=== PATIENT | female | born 1975 | race Hispanic/Latino ===

== ENCOUNTER 2019-02-21 10:54 | Emergency (ER) | payer BC, SELFPAY ==
[2019-02-21] VITALS (11 sets, daily range): BP systolic 106–145; BP diastolic 75–110; PULSE 59–97; RESP 8–25; TEMP 37; O2SAT 96–100; BMI 28.1
[2019-02-21] MEDS: Glucagon 1 MG/ML Syringe IV (11:39)
--- NOTE | 2019-02-21 11:42 | ED.VIS.GEN ---
History of Present Illness <Deep Tran - Last Filed: 02/21/19 14:56> Informant: Patient Onset: Today Context: Sudden Onset Timing: Continuous Quality: burning Location: throat Current Severity: Severe Maximum Severity: Severe Worsened by: swallowing Relieved by: nothing Associated Symptoms: denies Narrative: 43-year-old female who denies any significant past medical history presents to the emergency department with difficulty swallowing. Patient was eating homemade fish soup this morning and she feels like she swallowed a fishbone. She is now unable to swallow. She has not vomited. She denies drooling. She denies a history of similar symptoms. Denies a history of endoscopy. Denies history of GERD. Denies any other review of systems. Prior similar symptoms: No Recent Illness/Hospitalization: No <BoomayleenRadhames - Last Filed: 02/21/19 17:22> Chief Complaint: Foreign Body Past Medical History <Deep Tran - Last Filed: 02/21/19 14:56> Prior records reviewed: Yes Past Medical History: None Surgical History: herniorrhaphy Lives: With Family Smoking Status: Never smoker Alcohol: None <BoomayleenRadhames - Last Filed: 02/21/19 17:22> - Allergies and Home Meds Allergies/Adverse Reactions: Allergies No Known Allergies Allergy (Verified 02/21/19 10:54) Primary Care Physician: Su Laguna MD [Primary Care Provider] - Review of Systems All systems negative except as indicated ENT: Reports: Sore throat Gastrointestinal: Reports: - - Unable to swallow <Radhames Perez - Last Filed: 02/21/19 17:22> Physical Exam Vital Signs/Narrative: Vital Signs Pulse Pulse Pulse Pulse Pulse Pulse Pulse 02/21/19 14:53 86 02/21/19 14:46 84 02/21/19 14:41 87 02/21/19 14:36 91 02/21/19 14:13 79 77 75 77 85 92 02/21/19 14:02 65 02/21/19 13:27 02/21/19 12:07 61 Pulse Pulse Resp Resp Resp Resp Resp 02/21/19 14:53 25 H 02/21/19 14:46 15 02/21/19 14:41 16 02/21/19 14:36 15 02/21/19 14:13 94 97 19 H 8 L 13 16 02/21/19 14:02 14 02/21/19 13:27 02/21/19 12:07 14 Resp Resp Resp Resp BP BP BP 02/21/19 14:53 122/81 H 02/21/19 14:46 136/78 H 02/21/19 14:41 121/85 H 02/21/19 14:36 124/83 H 02/21/19 14:13 14 21 H 25 H 15 124/80 H 133/79 H 02/21/19 14:02 129/97 H 02/21/19 13:27 115/102 H 02/21/19 12:07 132/83 H BP BP BP BP BP BP Pulse Ox 02/21/19 14:53 96 02/21/19 14:46 98 02/21/19 14:41 99 02/21/19 14:36 99 02/21/19 14:13 133/79 H 142/110 H 124/84 H 106/78 123/91 H 138/90 H 02/21/19 14:02 100 02/21/19 13:27 02/21/19 12:07 98 <Deep Tran - Last Filed: 02/21/19 14:56> Vital Signs/Narrative: Vital Signs Temp Pulse Resp BP Pulse Ox 02/21/19 10:55 98.6 F 93 18 145/94 H 97 Inital Vital Signs reviewed: Yes General: Well nourished, Well developed, No Acute Distress Head: Normocephalic, Atraumatic Eyes: Perrl, EOMI ENT: Moist mucous membranes, - - Posterior oropharynx is erythematous. She has no stridor drooling or trismus. She is able to tolerate her secretions. Her voice is normal. Neck: Supple, Nontender Cardiovascular: Regular rate, Regular rhythm, No murmurs Respiratory: No distress, CTA bilaterally, Chest nontender Abdomen: Soft, Nontender, Nondistended, Normal bowel sounds, No masses Back: Nontender, Normal Inspection Extremities: Nontender, No edema Skin: Normal color, No rash Neurological: Alert, Oriented x3 <Radhames Perez - Last Filed: 02/21/19 17:22> Diagnostic/Tx/Re-eval - Medical Decision Making The patient continued to have symptoms despite using the glucagon, we spoke with Dr. Cerda who agreed to come in and provide EGD therapy, She underwent standard conscious sedation protocol cardiac monitoring pulse ox high flow oxygen, pulse ox 90% awake alert agreed to the procedure timeout performed, the patient was medicated, with Versed fentanyl incremental doses of propofol, EGD was performed scaly small cartilaginous type foreign body was found in the esophagus please see Dr. corey note for full details, patient was medicated incremental fashion to allow for the procedure, remained hemodynamically stable maintain her sat 99% and the foreign body was eventually removed without difficulty, she tolerated procedure well she woke had no complaints understood all the above understood instructions to follow-up and return for any type of pain swelling difficulties or breathing difficulties Home stable Impression final Fish foreign body scale in the esophagus Status post conscious sedation Post EGD removal of fish foreign body scale <Deep Tran - Last Filed: 02/21/19 14:56> - Medical Decision Making Patient's vital signs are stable. She is tolerating her secretions. There is no stridor trismus or drooling. She has a piece of a remnant of what she feels that is stuck in her throat it appears to be a piece of cartilage or scale or a Fragoso from the fish. She is having difficulty swallowing. We spoke with Dr. Cerda, on-call for surgery. He will take the patient to the endoscopy suite for direct visualization. IV was established and the patient was given glucagon. Patient had no improvement after glucagon. Dr. Cerda perform the endoscopy in the emergency department rather than taking her to the endoscopy suite. Conscious sedation was performed by Dr. Tran. Foreign body was removed. Patient was monitored post procedure and did well. Her airway is normal. Her vital signs are stable. She feels significantly improved. She will be discharged with her family. Patient <Radhames Perez - Last Filed: 02/21/19 17:22> ED Disposition <Deep Tran - Last Filed: 02/21/19 14:56> <Radhmaes Perez - Last Filed: 02/21/19 17:22> - Plan for ED Patient: Disposition: Home or Assisted Living Diagnosis: Foreign body in esophagus Instructions: ESOPHAGEAL FOREIGN BODY, Resolved Prescriptions: Omeprazole [Prilosec] 20 mg PO DAILY #30 cap Prescription Printed Referrals: Su Laguna MD [Primary Care Provider] -
[2019-02-21] MEDS: Ondansetron 4 MG/2 ML Vial IV (11:47)
[2019-02-21] MEDS: Morphine 4 MG/ML Syringe IV (11:47)
--- NOTE | 2019-02-21 11:55 | RAD_ITS ---
STUDY: X-RAY - SOFT TISSUE NECK REASON FOR EXAM: Female, 43 years old. Swallowed fishbone TECHNIQUE: 2 view(s) of the neck were obtained. COMPARISON: None. FINDINGS: Normal visualized nasopharynx, oropharynx, hypopharynx. Normal epiglottis. Normal visualized subglottic tracheal air column. Normal prevertebral soft tissue structures. There are degenerative changes of the cervical spine with cervical spondylosis. The soft tissue structures are unremarkable. RAD/Neck for Soft Tissue IMPRESSION: No visualized foreign body. Degenerative changes of the cervical spine. Electronically Signed: Francesca Centeno MD at 12:20 EDT Tel , Service support ,
--- NOTE | 2019-02-21 11:55 | RAD_ITS ---
STUDY: X-RAY CHEST REASON FOR EXAM: Female, 43 years old. Swallowed fishbone TECHNIQUE: Single AP portable view of the chest. COMPARISON: None. FINDINGS: The lungs are clear and expanded. There is no demonstrated pleural abnormality. Normal size heart. Normal mediastinum and sarah. Normal visualized pulmonary arteries. Normal visualized aortic arch and descending thoracic aorta. Normal visualized thoracic spine. Normal visualized ribs, clavicles, and shoulders. There is an air-fluid level in the stomach. RAD/Chest 1 View (Portable) IMPRESSION: Normal x-ray examination of the chest. No visualized foreign body. Electronically Signed: Francesca Centeno MD at 12:19 EDT Tel , Service support ,
[2019-02-21 12:29] LABS: Absolute Lymphocyte Count 1.96 X10^3/uL (0.83-4.51); Absolute Neutrophil Count 4.4 X10^3/uL (2.0-7.7); Basophil# 0.03 X10^3/uL; Basophil% 0.4 % (0-1); Eosinophil# 0.03 X10^3/uL; Eosinophils% 0.4 % (0-5); Hematocrit 42.5 % (37-47); Hemoglobin 13.5 g/dL (12.0-15.0); Lymphocyte # 1.96 X10^3/ul (4.0); Mean Corp Hgb Conc 31.8 g/dL (32-36); Mean Corpuscular Hgb 29.9 pg (27.0-32.0); Mean Platelet Vol. 10.5 fl (6.2-12.0); Monocyte# 0.82 X10^3/uL; Monocyte% 11.3 % (0-10); NRBC Flagged by Analyzer 0 % (0-5); Neutrophil # 4.39 X10^3/uL (2.7-7.7); Neutrophil % 60.5 % (47-70); Platelet Count 232 K/mm3 (150-450); RBC Distribution Width CV 13.2 % (11.6-14.6); RBC Distribution Width SD 45.8 fl (35.1-43.9); Red Blood Count 4.52 M/mm3 (4.2-5.4); White Blood Count 7.3 K/mm3 (4.4-11.0)
[2019-02-21 12:50] LABS: Anion Gap 5 (5-15); BUN 10 mg/dL (7-18); BUN/Creat Ratio 13.1 RATIO (10-20); Calcium,Total 8.4 mg/dL (8.5-10.1); Chloride 111 mmol/L (98-107); Creatinine, Serum 0.76 mg/dL (0.55-1.02); EST Glomerular Filtration Rate 87 mL/min (>60); Est Glom Filt Rate - Afr Amer 106 mL/min (>60); Estimated Creatinine Clearance 82.42 ml/min; Glucose 96 mg/dL (74-106); Potassium 3.7 mmol/L (3.5-5.1); Sodium Level 142 mmol/L (136-145)
--- NOTE | 2019-02-21 14:41 | CON.PCM_ITS ---
Reason for Consult Date of Consultation: 02/21/19 Reason for Consultation: esophageal foreign body History of Present Illness: The patient is a 43 year old F who presents after making fish bone soup. She tried the soup and then noticed a sensation of foreign body in her upper esophag us. This sensation failed to pass and she presented emergency department. The patient had a cervical x-ray and chest x-ray which demonstrated no abnormalities and no signs of foreign bodies. The patient was given glucagon prior to my presentation. When contacted, I recommended urgent upper endoscopy with planned esophageal foreign body removal. The patient takes no blood thinners has no previous history of esophageal foreign bodies or upper GI complaints. Past Medical History Allergies No Known Allergies Allergy (Verified 02/21/19 10:54) Home Medications: Ambulatory Orders Medication Instructions Recorded Omeprazole [Prilosec] 20 mg PO DAILY #30 cap 02/21/19 Surgical History: herniorrhaphy Lives: With Family Smoking Status: Never smoker Alcohol: None Review of Systems Constitutional: Denies: Chills, Fever, Weight Change HEENT: Reports: Dysphasia. Denies: Head Aches, Sinus Congestion, Sinus Drainage Cardiovascular: Denies: Chest Pain, Palpitations Respiratory: Denies: Cough, Shortness of breath at rest, Sputum production Gastrointestinal: Denies: Abdominal Pain, Nausea, Vomiting Genitourinary: Denies: Dysuria Musculoskeletal: Denies: Joint Pain, Joint Tenderness Skin: Denies: Rash, Wounds Neurological: Denies: Numbness, Tingling, Focal weakness Psychiatric: Denies: Anxiety, Depression, Homicidal Ideations, Suicidal Ideations Hematologic/ Lymphatic: Denies: Easy Bruising, Easy Bleeding - Physical Exam General: Alert, Oriented x3, Cooperative Lungs: Clear to auscultation, Normal air movement Cardiovascular: Regular rate, Regular Rhythm Abdomen: Bowel Sounds Present, Soft, Non Tender Vital Signs Temp Pulse Resp BP Pulse Ox 98.6 F 91 15 124/83 H 99 02/21/19 10:55 02/21/19 14:36 02/21/19 14:36 02/21/19 14:36 02/21/19 14:36 Oxygen Flow Rate (L/min) [8] 3 Oxygen Flow Rate (L/min) [7] 3 Oxygen Flow Rate (L/min) [6] 3 Oxygen Flow Rate (L/min) [5] 3 Oxygen Flow Rate (L/min) [4] 3 Oxygen Flow Rate (L/min) [3] 3 Oxygen Flow Rate (L/min) [2] 3 Oxygen Flow Rate (L/min) [1 ( 3 Initial Baseline)] Oxygen Flow Rate (L/min) 15 Oxygen Delivery Method [8] Nasal Cannula Oxygen Delivery Method [7] Nasal Cannula Oxygen Delivery Method [6] Nasal Cannula Oxygen Delivery Method [5] Nasal Cannula Oxygen Delivery Method [4] Nasal Cannula Oxygen Delivery Method [3] Room Air Oxygen Delivery Method [2] Room Air Oxygen Delivery Method [1 ( Room Air Initial Baseline)] Oxygen Delivery Method Non-Rebreather Weight: 74.4 kg Body Mass Index (BMI) 28.1 Intake and Output for Last 24 Hours 02/19/19 02/20/19 02/21/19 23:59 23:59 23:59 Intake Total 500 / 500 Balance 500 / 500 Laboratory Tests Past 24 Hrs 02/21/19 02/21/19 12:13 12:13 WBC 7.3 RBC 4.52 Hgb 13.5 Hct 42.5 MCV 94.0 MCH 29.9 MCHC 31.8 L RDW Std Deviation 45.8 H RDW Coeff of Samanta 13.2 Plt Count 232 MPV 10.5 Immature Gran % (Auto) 0.400 Neut % (Auto) 60.5 Lymph % (Auto) 27.0 [place] % (Auto) 11.3 H Eos % (Auto) 0.4 Baso % (Auto) 0.4 Absolute Neuts (auto) 4.4 Absolute Lymphs (auto) 1.96 Nucleated RBC % 0 Sodium 142 Potassium 3.7 Chloride 111 H Carbon Dioxide 26.0 Anion Gap 5 BUN 10 Creatinine 0.76 Estim Creat Clear Calc 82.42 Est GFR (MDRD) Af Amer 106 Est GFR (MDRD) Non-Af 87 BUN/Creatinine Ratio 13.1 Glucose 96 Calcium 8.4 L Assessment/Plan esophageal foreign body-fish cartilage. Upper endoscopy was performed. Attempts to remove the foreign body were challenging it was able to be grasped Sliding off. Once removed was removed from the upper esophageal sphincter it did lodge in the piriform fine sinus and then was removed with a video laryngoscope and Dennise forceps. The patient tolerates procedure well. It was recommended she stay on clear liquids for a few days and discussed that she might have a bit of a sore throat following this procedure. If that were the case are recommended throat lozenges. She is to follow up in my office in one week.
[2019-02-21] MEDS: fentaNYL 100 MCG/2 ML Ampul IV (14:45)
[2019-02-21] MEDS: Midazolam 2 MG/2 ML Syringe IV (14:45)
[2019-02-21] MEDS: Propofol 200 MG/20 ML Vial 40 MG IV BOLUS (14:49)
[2019-02-21] MEDS: Propofol 200 MG/20 ML Vial 190 MG IV BOLUS (14:50)
== END 2019-02-21 15:39 | disposition home or self-care (01) ==
PROVIDERS: Emergency Provider Emergency Medicine; Family Provider Internal Medicine; PCP Internal Medicine; Referring Provider Surgery
PROC: 0DJ08ZZ Inspection of Upper Intestinal Tract, Via Natural or Artificial Opening Endoscopic (ICD-10-PCS; CPT 43235; principal; 2019-02-21 13:30)
DX: T18.128A Food in esophagus causing other injury, initial encounter (principal)
CPT/HCPCS: 43247; 70360; 71045; 80048; 85025; 96361; 96374; 96375; 99152; 99285; J7030; J7040; A4216; J1610; J2405